=== PATIENT | female | born 1935 | race Two or more races ===

== ENCOUNTER 2018-08-03 09:30 | Emergency (ER) | payer MEDICARE, OTHER ==
[~2018-08-03] VITALS: Ht 165.1 cm; Wt 70.3 kg
[2018-08-03] MEDS: cloNIDine HCL 0.1 MG TAB PO ONE (09:50)
[2018-08-03 10:22] LABS: Basophils # (auto) 0 uL; Basophils % (auto) 0.5 % (0.0-2.0); Eosinophils # (auto) 0.1 uL; Eosinophils % (auto) 0.7 % (0.0-7.0); Hematocrit 44.6 % (36.0-46.0); Hemoglobin 14.8 g/dL (12.2-16.2); Lymphocytes # (auto) 1.8 uL; Lymphocytes % (auto) 19.6 % (10.0-50.0); Mean Corpuscular Hemoglobin 30.4 pg (28.0-32.0); Mean Corpuscular Hgb Conc. 33.1 g/dL (32.0-36.0); Mean Corpuscular Volume 91.9 fL (80.0-100.0); Monocytes % (auto) 11.4 % (0.0-12.0); Neutrophils # (auto) 6.1 uL; Neutrophils % (auto) 67.8 % (37.0-80.0); Platelet Count (auto) 281 10^3/uL (140-450); Red Blood Cells 4.86 10^6/uL (4.0-5.20); Red Cell Distribution Width 13.3 % (11.8-14.3)
[2018-08-03 10:39] LABS: Alanine Aminotransferase 27 U/L (13-56); Albumin 3.3 g/dL (3.4-5.0); Anion Gap 10 (5-15); Aspartate Aminotransferase 25 U/L (15-37); BUN/Creatinine Ratio 16.9; Blood Urea Nitrogen 15 mg/dL (7-18); Calcium 8.8 mg/dL (8.5-10.1); Carbon Dioxide 23 mmol/L (21-32); Chloride 106 mmol/L (98-107); GFR African American 78 mL/min; GFR Non-African American 65 mL/min; Glucose 119 mg/dL (74-106); Potassium 4.3 mmol/L (3.5-5.1); Sodium 139 mmol/L (136-145)
[2018-08-03 10:42] LABS: Alkaline Phosphatase 87 U/L (45-117); Bilirubin, Total 0.4 mg/dL (0.2-1.0); Total Protein 8.5 g/dL (6.4-8.2)
[2018-08-03 11:25] LABS: Urine Bacteria NONE SEEN /hpf (None Seen); Urine Blood TRACE /uL (Negative); Urine Specific Gravity 1.006 (1.001-1.035); Urine WBC <1 /hpf (0 - 5)
[2018-08-03 12:37] VITALS: BP 112/72
== END 2018-08-03 13:19 | disposition home or self-care (01) ==
LOC: ER 09:30
DX: M71.561 Other bursitis, not elsewhere classified, right knee (principal); I48.2 Chronic atrial fibrillation; I10 Essential (primary) hypertension; E44.1 Mild protein-calorie malnutrition; Z68.25 Body mass index [BMI] 25.0-25.9, adult; Z86.39 Personal history of other endocrine, nutritional and metabolic disease; Z88.2 Allergy status to sulfonamides
CPT/HCPCS: 36415; 80053; 81001; 85025; 93005

== ENCOUNTER 2024-07-28 13:11 | Inpatient (IN) | payer MEDICARE, BC ==
[~2024-07-28] VITALS: Ht 162.6 cm; Wt 67.6 kg
[2024-07-28] MEDS: hydrALAZINE HCL 10 MG TAB PO ONE (13:56)
[2024-07-28] MEDS: HYDROcodone-ACET 5/325MG TAB PO ONE (13:57)
[2024-07-28 14:22] LABS: Basophils # (auto) 0 10 ^3/uL (0-0.2); Basophils % (auto) 0.3 % (0.0-2.0); Eosinophils # (auto) 0 10 ^3/uL (0-0.8); Eosinophils % (auto) 0.1 % (0.0-7.0); Hematocrit 44.7 % (36.0-46.0); Hemoglobin 14.9 g/dL (12.2-16.2); Lymphocytes # (auto) 1.4 10 ^3/uL (0.4-5.4); Lymphocytes % (auto) 9.7 % (10.0-50.0); Mean Corpuscular Hemoglobin 30.2 pg (28.0-32.0); Mean Corpuscular Hgb Conc. 33.3 g/dL (32.0-36.0); Mean Corpuscular Volume 90.7 fL (80.0-100.0); Monocytes # (auto) 1.2 10 ^3/uL (0-1.3); Monocytes % (auto) 8.5 % (0.0-12.0); Neutrophils # (auto) 11.6 10 ^3/uL (1.6-8.6); Neutrophils % (auto) 81.4 % (37.0-80.0); Nucleated Red Blood Cells % 0.1 %; Platelet Count (auto) 226 10^3/uL (140-450); Red Blood Cells 4.93 10^6/uL (4.0-5.20); Red Cell Distribution Width 13.9 % (11.8-14.3); White Blood Cell 14.2 10^3/uL (4.4-10.8)
--- NOTE | 2024-07-28 14:25 | DVH ---
CT HEAD WITHOUT CONTRAST Indication: fall head injury on amisha EXAM DATE: 07/28/2024 01:19 PM COMPARISON: None TECHNIQUE:CT of the head, cervical spinewithout intravenous contrast. RADIATION DOSE: CTDIvol: 53.99 mGy, DLP: 863.9 mGy*cm FINDINGS: There is no intracranial hemorrhage. There is no extra-axial fluid, mass, mass effect or midline shif t. The ventricles are midline and normal in size. Basilar cisterns are patent. There are moderate per iventricular and subcortical white matter chronic microvascular ischemic changes. The paranasal sinuses and mastoids are well-pneumatized. Imaged portion of the orbits are unremarkabl e. Cervical vertebral body heights are maintained. Severe multilevel disc space narrowing most pronounc ed at C5-6, C6-7.2 mm anterolisthesis of C3 upon C4.3 mm anterolisthesis C4 upon C5. Moderate to adv anced facet hypertrophic changes. Moderate to severe multilevel neural foraminal stenosis. Carotid at herosclerotic disease. IMPRESSION: 1. No intracranial hemorrhage or mass effect. 2. Moderate chronic microvascular Ischemic changes. 3. Severe cervical degenerative disc disease.
[2024-07-28 14:26] LABS: Chloride 104 mmol/L (98-107); Potassium 4.1 mmol/L (3.5-5.1); Sodium 139 mmol/L (136-145)
[2024-07-28 14:27] LABS: Anion Gap 11 (5-15); Carbon Dioxide 24 mmol/L (20-31)
[2024-07-28 14:28] LABS: Calcium 10.4 mg/dL (8.7-10.4)
[2024-07-28 14:32] LABS: BUN/Creatinine Ratio 28.6 (10.0-20.0)
[2024-07-28 14:33] LABS: Blood Urea Nitrogen 28 mg/dL (9-23); Glucose 123 mg/dL (74-106)
--- NOTE | 2024-07-28 14:34 | DVH ---
Procedure: CT CT R HIP WITH OUT CONTRAST 07/28/2024 01:26 PM Indication: fall r hip pain Comparison Study: None Technique: Axial images of the right hip were obtained and reformatted in coronal and sagittal planes . All CT scans at this medical facility are performed using dose modulation techniques as appropriate to a performed exam including the following: Automated exposure control was utilized; adjustment of the MA and/or KV according to patient size; and use of iterative reconstruction technique. CT Dose: C TDI volume is 23.08 mGy. Dose-length product is 607.11 mGy*cm FINDINGS: Bones: No acute fracture or dislocation. Joint spaces are maintained. Soft tissues: Atherosclerotic calcification noted. Colonic diverticulosis. Small fat containing righ t inguinal hernia. IMPRESSION: 1. No acute osseous abnormality.
--- NOTE | 2024-07-28 14:39 | DVH ---
Indication: fall lo back pain Technique: CT axial images of the lumbar spine are obtained without contrast. Coronal and sagittal re formats were obtained. Radiation Dose Information: CTDI volume is 24.46 mGy. Dose-length product is 785.79 mGy*cm Comparison: None FINDINGS: Acute fracture of the T12 vertebral body which extends through the superior and inferior endplates, l eft lateral cortex of the T12 vertebral body.. Approximately 20% depression of the T12 vertebral body . Lumbar vertebral body heights are maintained. Moderate to severe multilevel disc space narrowing. Rebecca mbar levoscoliosis. Severe lumbar facet hypertrophic changes. Atherosclerotic calcification disease. Colonic diverticular disease. IMPRESSION: 1. Acute T12 vertebral body fracture. Recommend dedicated CT of the thoracic spine to evaluate. 2. Moderate to severe lumbar degenerative disc disease. Lumbar levocurvature.
[2024-07-28 15:00] VITALS: PULSE 88; RESP 16; O2SAT 99
--- NOTE | 2024-07-28 15:07 | ED.PDOC ---
History of Present Illness HPI Comments 88-year-old female with a history of AFib, hypertension, thyroid disease and anxiety brought in by family complaining of low back and right hip pain status post fall yesterday evening while showering. Patient states she lost her balance, fell backwards landing on her back and hitting the back of her head on the shower floor. She denies losing consciousness or any preceding dizziness, chest pain or shortness of breath. Currently she is complaining of low back pain and right hip pain. She denies any current chest pain, shortness of breath, recent illness, edema or other symptoms. Chief Complaint: Fall Injury Time Seen by MD: 13:26 Primary Care Provider: JACKIE Allergies: Coded Allergies: Sulfa Antibiotics (Verified Allergy, Unknown, 08/03/18) Mode of Arrival: Ambulatory Past Medical History PAST MEDICAL HISTORY: AFIB, Arthritis, Depression, HTN, Thyroid Surgical History (Other): Breast lumpectomy WASTEWATER MANAGER History: No Pertinent WASTEWATER MANAGER History Family History Family History: Reviewed,noncontributory to illness Social History Smoker: Non-Smoker Alcohol: Denies ETOH Use Drugs: Denies Drug Use Lives In: Home All Other Systems: Reviewed and Negative (Comprehensive systems review obtained and negative except for what is stated in the HPI.) Physical Exam General Appearance: No Apparent Distress HEENT: Other (Pupils and face symmetric. Moist mucous membranes.) Neck: Full Range of Motion, Other (Mild midline and paraspinal cervical tenderness to palpation. No crepitus or step-off) Respiratory: Lungs Clear, No Accessory Muscle Use, No Respiratory Distress, Normal Breath Sounds Cardiovascular: Irregular, No Edema, No JVD Breast Exam: Deferred Gastrointestinal: Non Tender, Soft Genitalia: Deferred Pelvic: Deferred Rectal: Deferred Extremities: Normal inspection, Normal range of motion, No pedal edema, Other (Right hip soft tissue tenderness to palpation) Musculoskeletal : Extremity Location: Back (Upper lumbar midline tenderness to palpation) Neurologic: Alert (Oriented x4), Normal Affect, Normal Mood, Other (Ambulatory) Cerebellar Function: NOT DONE Reflexes: NOT DONE Skin: Dry, Normal Color, Warm Lymphatic: NOT DONE Was a procedure done? Was a procedure done?: No EKG EKG : Comments AFib, rate 90, normal QRS interval, QTC prolonged at 500, left axis deviation, lateral T-wave inversion with ST depression Differential Dx Considerations may include: Contusion, sprain, strain, fracture, dislocation, electrolyte imbalance, arrhythmia, [place], CVA, among others X-Ray, Labs, Meds, VS Vital Signs Date Time Temp Pulse Resp B/P (MAP) Pulse Ox O2 Delivery O2 Flow Rate FiO2 07/28/24 20:23 90 07/28/24 19:20 97.7 94 15 151/94 (113) 93 97.7 07/28/24 19:20 94 15 93 Room Air* 0 21 07/28/24 18:10 98.0 86 20 137/86 (103) 95 98.0 07/28/24 17:28 Room Air* 0 21 07/28/24 15:00 98.2 88 16 156/85 (108) 99 98.2 07/28/24 15:00 88 16 99 Room Air* 0 21 07/28/24 13:56 174/124 07/28/24 13:18 98.2 89 20 176/124 (141) 97 98.2 176/115 (135) Lab Test 07/28/24 15:06 07/28/24 14:08 Range/Units Troponin I High Sensitivity 326 *H 370 *H </=34 ng/L White Blood Count 14.2 H 4.4-10.8 10^3/uL Red Blood Count 4.93 4.0-5.20 10^6/uL Hemoglobin 14.9 12.2-16.2 g/dL Hematocrit 44.7 36.0-46.0 % Mean Corpuscular Volume 90.7 80.0-100.0 fL Mean Corpuscular Hemoglobin 30.2 28.0-32.0 pg Mean Corpuscular Hemoglobin Concent 33.3 32.0-36.0 g/dL Red Cell Distribution Width 13.9 11.8-14.3 % Platelet Count 226 140-450 10^3/uL Mean Platelet Volume 8.3 6.9-10.8 fL Neutrophils (%) (Auto) 81.4 H 37.0-80.0 % Lymphocytes (%) (Auto) 9.7 L 10.0-50.0 % Monocytes (%) (Auto) 8.5 0.0-12.0 % Eosinophils (%) (Auto) 0.1 0.0-7.0 % Basophils (%) (Auto) 0.3 0.0-2.0 % Neutrophils # (Auto) 11.6 H 1.6-8.6 10 ^3/uL Lymphocytes # (Auto) 1.4 0.4-5.4 10 ^3/uL Monocytes # (Auto) 1.2 0-1.3 10 ^3/uL Eosinophils # (Auto) 0 0-0.8 10 ^3/uL Basophils # (Auto) 0 0-0.2 10 ^3/uL Nucleated Red Blood Cells 0.1 % Sodium Level 139 136-145 mmol/L Potassium Level 4.1 3.5-5.1 mmol/L Chloride Level 104 98-107 mmol/L Carbon Dioxide Level 24 20-31 mmol/L Anion Gap 11 5-15 Blood Urea Nitrogen 28 H 9-23 mg/dL Creatinine 0.98 0.550-1.02 mg/dL Glomerular Filtration Rate Calc 56 >90 mL/min BUN/Creatinine Ratio 28.6 H 10.0-20.0 Serum Glucose 123 H 74-106 mg/dL Calcium Level 10.4 8.7-10.4 mg/dL B-Type Natriuretic Peptide 1077.30 0-100 pg/mL Current Medications Medications (Trade) Dose Ordered Sig/Oli Route Start Time Stop Time Status Last Admin Acetaminophen/ Hydrocodone Bitart (Canute 5/325MG Tab) 1 tab ONCE ONCE PO 07/28/24 13:30 07/28/24 13:31 DC 07/28/24 13:57 Hydralazine HCl (Apresoline Tablet) 10 mg ONCE ONCE PO 07/28/24 13:30 07/28/24 13:31 DC 07/28/24 13:56 Aspirin 325 mg ONCE ONCE PO 07/28/24 19:30 07/28/24 20:35 DC 07/28/24 20:48 PROCEDURE(s): HWOCT - HEAD WITHOUT CONTRAST REASON: fall head injury on T[employer] Labsquis ORDER NUMBER(s): [id number], ACCESSION NUMBER(s): [id number] CT HEAD WITHOUT CONTRAST Indication: fall head injury on eliquis EXAM DATE: 07/28/2024 01:19 PM COMPARISON: None TECHNIQUE:CT of the head, cervical spinewithout intravenous contrast. RADIATION DOSE: CTDIvol: 53.99 mGy, DLP: 863.9 mGy*cm FINDINGS: There is no intracranial hemorrhage. There is no extra-axial fluid, mass, mass effect or midline shift. The ventricles are midline and normal in size. Basilar cisterns are patent. There are moderate periventricular and subcortical white matter chronic microvascular ischemic changes. The paranasal sinuses and mastoids are well-pneumatized. Imaged portion of the orbits are unremarkable. Cervical vertebral body heights are maintained. Severe multilevel disc space narrowing most pronounced at C5-6, C6-7.2 mm anterolisthesis of C3 upon C4.3 mm anterolisthesis C4 upon C5. Moderate to advanced facet hypertrophic changes. Moderate to severe multilevel neural foraminal stenosis. Carotid atherosclerotic disease. IMPRESSION: 1. No intracranial hemorrhage or mass effect. 2. Moderate chronic microvascular Ischemic changes. 3. Severe cervical degenerative disc disease. EDURE(s): CS2 - CERVICAL WITHOUT CONTRAST REASON: fall head injury ORDER NUMBER(s): [id number], ACCESSION NUMBER(s): [id number] CT HEAD WITHOUT CONTRAST Indication: fall head injury on [facility] EXAM DATE: 07/28/2024 01:19 PM COMPARISON: None TECHNIQUE:CT of the head, cervical spinewithout intravenous contrast. RADIATION DOSE: CTDIvol: 53.99 mGy, DLP: 863.9 mGy*cm FINDINGS: There is no intracranial hemorrhage. There is no extra-axial fluid, mass, mass effect or midline shift. The ventricles are midline and normal in size. Basilar cisterns are patent. There are moderate periventricular and subcortical white matter chronic microvascular ischemic changes. The paranasal sinuses and mastoids are well-pneumatized. Imaged portion of the orbits are unremarkable. Cervical vertebral body heights are maintained. Severe multilevel disc space narrowing most pronounced at C5-6, C6-7.2 mm anterolisthesis of C3 upon C4.3 mm anterolisthesis C4 upon C5. Moderate to advanced facet hypertrophic changes. Moderate to severe multilevel neural foraminal stenosis. Carotid atherosclerotic disease. IMPRESSION: 1. No intracranial hemorrhage or mass effect. 2. Moderate chronic microvascular Ischemic changes. 3. Severe cervical degenerative disc disease. EDURE(s): CXR1 - CHEST XRAY 1 VIEW REASON: fall ORDER NUMBER(s): [id number], ACCESSION NUMBER(s): [id number] EXAM: XY CHEST XRAY 1 VIEW Indication: Trauma Technique: Single frontal view of the chest was obtained Comparison: None FINDINGS: Lines and Tubes: None Lungs: No focal consolidation. Pleura: No effusion. No pneumothorax. Cardiomediastinal contours: Unremarkable. Atherosclerotic vascular calcifications of the thoracic aorta are noted. Bones: No acute osseous abnormality. IMPRESSION: No acute cardiopulmonary disease. EDURE(s): LS2CT - LS SPINE WO CONTRAST REASON: fall lo back pain ORDER NUMBER(s): [id number], ACCESSION NUMBER(s): [id number] Indication: fall lo back pain Technique: CT axial images of the lumbar spine are obtained without contrast. Coronal and sagittal reformats were obtained. Radiation Dose Information: CTDI volume is 24.46 mGy. Dose-length product is 785.79 mGy*cm Comparison: None FINDINGS: Acute fracture of the T12 vertebral body which extends through the superior and inferior endplates, left lateral cortex of the T12 vertebral body.. Approximately 20% depression of the T12 vertebral body. Lumbar vertebral body heights are maintained. Moderate to severe multilevel disc space narrowing. Lumbar levoscoliosis. Severe lumbar facet hypertrophic changes. Atherosclerotic calcification disease. Colonic diverticular disease. IMPRESSION: 1. Acute T12 vertebral body fracture. Recommend dedicated CT of the thoracic spine to evaluate. 2. Moderate to severe lumbar degenerative disc disease. Lumbar levocurvature. EDURE(s): RHPCT - CT R HIP WITH OUT CONTRAST REASON: fall r hip pain ORDER NUMBER(s): [id number], ACCESSION NUMBER(s): [id number] Procedure: CT CT R HIP WITH OUT CONTRAST 07/28/2024 01:26 PM Indication: fall r hip pain Comparison Study: None Technique: Axial images of the right hip were obtained and reformatted in coronal and sagittal planes. All CT scans at this medical facility are performed using dose modulation techniques as appropriate to a performed exam including the following: Automated exposure control was utilized; adjustment of the MA and/or KV according to patient size; and use of iterative reconstruction technique. CT Dose: CTDI volume is 23.08 mGy. Dose-length product is 607.11 mGy*cm FINDINGS: Bones: No acute fracture or dislocation. Joint spaces are maintained. Soft tissues: Atherosclerotic calcification noted. Colonic diverticulosis. Small fat containing right inguinal hernia. IMPRESSION: 1. No acute osseous abnormality. X-Ray, Labs, Meds, VS Comment 88-year-old female with a history of AFib, hypertension and arthritis presenting with back pain, hip pain and a head injury after a fall in the shower last night Vitals remarkable for BP 176/124 Exam remarkable for neck, low back, and right hip tenderness Rhythm strip independently interpreted by me: AFib, rate 90, no PVCs CT head, C-spine and hip unremarkable for any acute fracture Chest x-ray unremarkable CT lumbar spine remarkable for acute T12 vertebral body fracture CBC remarkable for WBC 14.2, metabolic panel remarkable for BUN 28, serial troponins 370 and 326, BNP 1077.3 Patient treated with the following in the ED: Canute 5/325 mg p.o., hydralazine 10 mg p.o., aspirin 325 mg p.o. On re-evaluation, patient states pain has improved. Vitals were stable. She is not complaining of chest pain or shortness of breath. Plan is to admit the patient for ortho spine evaluation, pain control and Cardiology evaluation Time of 1ST Reevaluation: 19:31 Reevaluation 1ST: Improved Patient Education/Counseling: Diagnosis, Treatment, Need For Follow Up Family Education/Counseling: No Family Present Departure 1 Departure Time of Disposition: 17:00 Impression: Primary Impression: Spine fracture Qualified Codes: S22.089A - Unspecified fracture of t11-T12 vertebra, initial encounter for closed fracture Additional Impression: Elevated troponin I level Disposition: ADMITTED INPATIENT Admit to: [facility] [place] Condition: Guarded Critical Care Note Critical Care Time?: No Stability Stability form required: No Heart Score Heart Score: Heart Score Response (Comments) Value History N/A 0 EKG N/A 0 Age N/A 0 Risk Factors N/A 0 Troponin N/A 0 Total 0 DOV KHOURY MD July 28, 2024 15:07
--- NOTE | 2024-07-28 15:22 | DVH ---
EXAM: XY CHEST XRAY 1 VIEW Indication: Trauma Technique: Single frontal view of the chest was obtained Comparison: None FINDINGS: Lines and Tubes: None Lungs: No focal consolidation. Pleura: No effusion. No pneumothorax. Cardiomediastinal contours: Unremarkable. Atherosclerotic vascular calcifications of the thoracic ao rta are noted. Bones: No acute osseous abnormality. IMPRESSION: No acute cardiopulmonary disease.
[2024-07-28 19:20] VITALS: PULSE 94; RESP 15; O2SAT 93
[2024-07-28] MEDS: ASPirin 325 MG TAB PO ONE (20:48)
--- NOTE | 2024-07-28 22:25 | DVHHP2 ---
History of Present Illness History of Present Illness Patient is 88 years old female with past medical history of atrial fibrillation on Eliquis, hypertension, depression, thyroid disease was brought in due to back pain and hip pain status post fall yesterday. So patient she fell in the shower room on her back and hit her head. Patient also had right hip pain and back pain, 9/10. Denied any losing consciousness or chest pain or shortness of breath. On arrival patient's blood pressure was 176/115, leukocytosis WBC 14.2, DW monitoring 1.4, lymphocytes 10.7, troponin I 370> 326, BNP 1077. Cervical s pine- No intracranial hemorrhage or mass effect. Moderate chronic microvascular Ischemic changes. Severe cervical degenerative disc disease. CT head- No intracranial hemorrhage or mass effect. Moderate chronic microvascular Ischemic changes. Severe cervical degenerative disc disease. CT right hip-1. No acute osseous abnormality. CT lumbar spine- 1. Acute T12 vertebral body fracture. Recommend dedicated CT of the thoracic spine to evaluate. Moderate to severe lumbar degenerative disc disease. Lumbar levocurvature. CXR no acute cardiopulmonary abnormality noted. CT Thoracic Spine- Acute T12 vertebral body fracture. No significant retropulsion into the spinal canal. Moderate degenerative arthrosis throughout the thoracic spine. . S shaped scoliosis of the thoracic spine. EKG-atrial fibrillation, rate controlled. Past Medical History atrial fibrillation on Eliquis, hypertension, depression, thyroid disease Past Surgical History Breast lumpectomy Family History None Past Social History Lives with the , denies all Review of Systems Review of Systems Allergy-sulfa antibiotic Patient was seen today at the bedside. Cardiovascular- deny acute chest pain or shortness of breath or cough or palpitation Respiratory denies cough or short of breath or wheezing Gastrointestinal- denies any rectal bleeding, nausea or vomiting Musculoskeletal-denies acute joint swelling or tenderness or redness Neurological- denies acute dysarthria, dysphagia, change in vision Psychiatry- denies depression or SI or HI Skin- denies acute rash or purpura Allergies: Coded Allergies: Sulfa Antibiotics (Verified Allergy, Unknown, 08/03/18) Medications Current Medications Medications Dose Ordered Sig/Oli Route Start Time Stop Time Status Last Admin Dose Admin Sodium Chloride 10 ml Q8HR IV 07/29/24 06:00 Acetaminophen/ Hydrocodone Bitart 1 tab Q4HP PRN PO 07/28/24 22:30 UNV Acetaminophen 650 mg Q6HP PRN PO 07/28/24 22:30 UNV Morphine Sulfate 2 mg Q4HPRN PRN IV 07/28/24 22:30 UNV Nitroglycerin 0.4 mg Q5MINP PRN SL 07/28/24 22:30 UNV Morphine Sulfate 2 mg Q30M PRN IV 07/28/24 22:30 UNV Exam Vital Signs Vital Signs Date Time Temp Pulse Resp B/P (MAP) Pulse Ox O2 Delivery O2 Flow Rate FiO2 07/28/24 22:00 95 20 171/101 (124) 95 07/28/24 19:20 97.7 97.7 07/28/24 19:20 Room Air* 0 21 Exam General examination- , alert, oriented HEENT- PEERLA, no acute nasal discharge Cardiovascular- S1-S2 audible, rate and rhythm regular, no murmur Respiratory- CTAB, no wheeze or rhonchi Gastrointestinal-nontender, bowel sound+. Nondistended Musculoskeletal-no acute joint swelling or tenderness or redness Lower extremity- no leg edema Neurological- cranial nerves intact, no acute dysarthria or dysphagia Psychiatry- denies depression or SI or HI Skin- no acute rash or purpura Labs/Xrays Labs Test 07/28/24 15:06 07/28/24 14:08 Range/Units Troponin I High Sensitivity 326 *H </=34 ng/L White Blood Count 14.2 H 4.4-10.8 10^3/uL Red Blood Count 4.93 4.0-5.20 10^6/uL Hemoglobin 14.9 12.2-16.2 g/dL Hematocrit 44.7 36.0-46.0 % Mean Corpuscular Volume 90.7 80.0-100.0 fL Mean Corpuscular Hemoglobin 30.2 28.0-32.0 pg Mean Corpuscular Hemoglobin Concent 33.3 32.0-36.0 g/dL Red Cell Distribution Width 13.9 11.8-14.3 % Platelet Count 226 140-450 10^3/uL Mean Platelet Volume 8.3 6.9-10.8 fL Neutrophils (%) (Auto) 81.4 H 37.0-80.0 % Lymphocytes (%) (Auto) 9.7 L 10.0-50.0 % Monocytes (%) (Auto) 8.5 0.0-12.0 % Eosinophils (%) (Auto) 0.1 0.0-7.0 % Basophils (%) (Auto) 0.3 0.0-2.0 % Neutrophils # (Auto) 11.6 H 1.6-8.6 10 ^3/uL Lymphocytes # (Auto) 1.4 0.4-5.4 10 ^3/uL Monocytes # (Auto) 1.2 0-1.3 10 ^3/uL Eosinophils # (Auto) 0 0-0.8 10 ^3/uL Basophils # (Auto) 0 0-0.2 10 ^3/uL Nucleated Red Blood Cells 0.1 % Sodium Level 139 136-145 mmol/L Potassium Level 4.1 3.5-5.1 mmol/L Chloride Level 104 98-107 mmol/L Carbon Dioxide Level 24 20-31 mmol/L Anion Gap 11 5-15 Blood Urea Nitrogen 28 H 9-23 mg/dL Creatinine 0.98 0.550-1.02 mg/dL Glomerular Filtration Rate Calc 56 >90 mL/min BUN/Creatinine Ratio 28.6 H 10.0-20.0 Serum Glucose 123 H 74-106 mg/dL Calcium Level 10.4 8.7-10.4 mg/dL B-Type Natriuretic Peptide 1077.30 0-100 pg/mL Assessment/Plan Assessment/Plan Assessment and plan Fall Thoracic 2 vertebral fracture Severe back pain likely due to T2 vertebral fracture Atrial fibrillation rate controlled Hypertensive urgency NSTEMI type 2 likely demand lead ischemia Heart failure systolic versus diastolic-pending echo 2D Leukocytosis under evaluation Hypothyroidism Depression Osteoarthritis scoliosis of the thoracic spine Moderate degenerative arthrosis throughout the thoracic spin Head-Moderate chronic microvascular Ischemic changes of head EKG-atrial fibrillation, rate controlled Repeat EKG at a.m. on 07/29/2024-no significant change except AFib like before CT Thoracic Spine- Acute T12 vertebral body fracture. No significant retropulsion into the spinal canal. Moderate degenerative arthrosis throughout the thoracic spine. . S shaped scoliosis of the thoracic spine Cervical spine- No intracranial hemorrhage or mass effect. Moderate chronic microvascular Ischemic changes. Severe cervical degenerative disc disease. CT head- No intracranial hemorrhage or mass effect. Moderate chronic micro vascular Ischemic changes. Severe cervical degenerative disc disease. CT right hip-1. No acute osseous abnormality. CT lumbar spine- 1. Acute T12 vertebral body fracture. Moderate to severe lumbar degenerative disc disease. Lumbar levocurvature. CXR no acute cardiopulmonary abnormality noted. Plan Continue pain medication as prescribed Aspirin 80 mg p.o. daily Atorvastatin 40 mg p.o. q.h.s. Coreg 6.25 mg p.o. b.i.d. Losartan 50 mg p.o. daily Ordered ceftriaxone 1 g IV daily Eliquis 2.5 mg p.o. b.i.d. Levothyroxine 88 mcg p.o. q.a.m. Ordered urinalysis Ordered uterine culture, blood culture Ordered free T4 Ordered echo 2D Ordered cardiology consult Goals of care, Code status ; discussed with >15 minutes PUD prophylaxis: Pantoprazole DVT prophylaxis: Eliquis Plan discussed with Dr. Corral , nursing staff, Total time spent on patient evaluation, chart review, assessment and plan, discussion discussion >35 minutes Plan discussed with: Patient, Other My Orders Orders - JONNATHAN TORRES RESIDENT Procedure Category Date Status Time Admit ADMIT 07/28/24 Transmitted 22:19 Code Status CODE 07/28/24 Transmitted 22:19 Sodium Chloride Lock PHA 07/29/24 In Process (Saline Lock Ns) 06:00 Hydrocodone-Acet PHA 07/28/24 Logged 5/325mg Tab (Fonda 22:30 Complete Blood Count LAB 07/29/24 Verified 04:00 Comprehensive LAB 07/29/24 Verified Metabolic Panel 04:00 Cardiac DIET 07/29/24 Transmitted Diet-2gna,Lofat,Lochol Breakfast Echo 2d Mode Cardiac US 07/28/24 Logged DOP 22:19 Acetaminophen Tablet PHA 07/28/24 Logged (Tylenol Tablet) 22:30 Morphine Sulfate PHA 07/28/24 Logged Injection 22:30 Nitroglycerin PHA 07/28/24 Logged Sublingual (Ntrostat 22:30 Morphine Sulfate PHA 07/28/24 Logged Injection 22:30 Oxygen By Nasal RT 07/28/24 Transmitted Cannula 22:19 Stat Ekg For Chest MARTY 07/28/24 In Process Pain 22:19 Notify Of Changes MARTY 07/28/24 In Process From Base 22:[address] Driver For MARTY 07/28/24 In Process 24 Hours 22:19 Emergency Dysrhythmia MARTY 07/28/24 In Process Protocol 22:19 Rhythm Strips Once MARTY 5/16/25 In Process Every Shift 22:19 Date of Service: July 28, 2024 Billing Provider: RYLEE CORRAL MD Common Visit Codes: [id number] INP/OBS CARE (HIGH) Secondary Visit Codes: [id number] CARE PLAN 30 MINUTES JONNATHAN TORRES RESIDENT July 28, 2024 22:25
[2024-07-28] MEDS: ASPirin 81 mg TAB PO ONE (22:28)
[2024-07-28] MEDS ORDERED: NITROGLYCERIN 0.4 MG SL TAB SL PRN (22:30)
[2024-07-28] MEDS ORDERED: MORPHINE SULFATE INJ 2 MG/ml SYRG IV PRN ×2 (22:30)
[2024-07-28] MEDS: ATORVASTATIN 20 MG TAB PO ONE (22:34)
[2024-07-28] MEDS: HYDROcodone-ACET 5/325MG TAB PO PRN (22:34)
[2024-07-28] MEDS: METOPROLOL TARTRATE 25 MG TAB PO ONE (22:35)
[2024-07-28] MEDS: LEVOTHYROXINE SODIUM 100 MCG TAB PO ONE (22:35)
[2024-07-28] MEDS: hydrALAZINE HCL 20 MG/ML VL IV ONE (23:08)
[2024-07-28] MEDS ORDERED: NIFEdipine ER 30 MG TAB PO ONE (23:15)
[2024-07-28] MEDS: CARVEDILOL 3.125 MG TAB PO ONE (23:27)
[2024-07-28] MEDS: PANTOPRAZOLE 40 MG TAB PO ONE (23:30)
[2024-07-28] MEDS: cefTRIAXone 1GM/50ML D5W 50 ML IV ONE (23:46)
[2024-07-28] MEDS: SERTRALINE HCL 50 MG TAB PO ONE (23:47)
--- NOTE | 2024-07-28 23:50 | DVH ---
EXAM: CT THORACIC SPINE WO CONTRAS INDICATION: eval T 12 fx COMPARISON: None TECHNIQUE: Multiple axial CT images of the thoracic spine were obtained using bone algorithm. Axial and coronal reformatting was done. Bone and soft tissue windows were reviewed. Radiation Dose Information: CT Dose: CTDI volume is 29 mGy. Dose-length product is 868 mGy*cm FINDINGS: Acute T12 vertebral body fracture. No significant retropulsion into the spinal canal. The visualized paraspinal soft tissues are grossly unremarkable. Moderate degenerative changes throughout the thoracic spine. S shaped scoliosis of the thoracic spine. IMPRESSION: 1. Acute T12 vertebral body fracture. No significant retropulsion into the spinal canal. 2. Moderate degenerative arthrosis throughout the thoracic spine. 3. S shaped scoliosis of the thoracic spine Radiation optimization: All CT scans at this facility use at least one of these dose optimization keegan hniques: automated exposure control mA and/or kV adjustment per patient size (includes targeted exam s where dose is matched to clinical indication) or iterative reconstruction.
[2024-07-29] VITALS (10 sets, daily range): BP systolic 100–165; BP diastolic 67–102; PULSE 73–108; RESP 15–19; TEMP 97.5–98; O2SAT 90–99
[2024-07-29] MEDS: PANTOPRAZOLE 40 MG/10 ML VIAL INJ IV ONE (00:44)
[2024-07-29] MEDS: ONDANSETRON HCL 4 MG/2 ML VIAL IM ONE (00:44)
[2024-07-29] MEDS ORDERED: APIX2.5T PO (03:20)
[2024-07-29] MEDS ORDERED: MET50T PO (03:21)
[2024-07-29] MEDS ORDERED: ATOR20TA PO (03:22)
[2024-07-29] MEDS ORDERED: SERT25TA28 PO (03:22)
[2024-07-29] MEDS: SODIUM CHLOR 0.9% PF (SALINE LOCK) 10ML VIAL/SYR IV SCH (05:47)
--- NOTE | 2024-07-29 06:09 | ECG ---
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
[2024-07-29 06:24] LABS: Basophils # (auto) 0.1 10 ^3/uL (0-0.2); Basophils % (auto) 0.4 % (0.0-2.0); Eosinophils # (auto) 0 10 ^3/uL (0-0.8); Eosinophils % (auto) 0.3 % (0.0-7.0); Hematocrit 43.6 % (36.0-46.0); Hemoglobin 14.5 g/dL (12.2-16.2); Lymphocytes # (auto) 1.5 10 ^3/uL (0.4-5.4); Lymphocytes % (auto) 11.3 % (10.0-50.0); Mean Corpuscular Hemoglobin 30.1 pg (28.0-32.0); Mean Corpuscular Hgb Conc. 33.3 g/dL (32.0-36.0); Mean Corpuscular Volume 90.2 fL (80.0-100.0); Monocytes # (auto) 1.2 10 ^3/uL (0-1.3); Monocytes % (auto) 9.1 % (0.0-12.0); Neutrophils # (auto) 10.2 10 ^3/uL (1.6-8.6); Neutrophils % (auto) 78.9 % (37.0-80.0); Nucleated Red Blood Cells % 0.1 %; Platelet Count (auto) 188 10^3/uL (140-450); Red Blood Cells 4.83 10^6/uL (4.0-5.20)
[2024-07-29 06:43] LABS: Alanine Aminotransferase 21 U/L (7-40); Albumin 3.9 g/dL (3.2-4.8); Alkaline Phosphatase 71 U/L (46-116); Anion Gap 12 (5-15); Aspartate Aminotransferase 37 U/L (13-40); BUN/Creatinine Ratio 23.5 (10.0-20.0); Blood Urea Nitrogen 20 mg/dL (9-23); Calcium 9.1 mg/dL (8.7-10.4); Carbon Dioxide 23 mmol/L (20-31); Chloride 103 mmol/L (98-107); Magnesium 2.2 mg/dL (1.6-2.6); Potassium 4.1 mmol/L (3.5-5.1); Sodium 138 mmol/L (136-145); Total Protein 7.4 g/dL (5.7-8.2)
[2024-07-29 07:05] LABS: Glucose 113 mg/dL (74-106)
[2024-07-29] MEDS: ONDANSETRON HCL 4 MG/2 ML VIAL IV PRN (08:22)
[2024-07-29] MEDS: SERTRALINE HCL 50 MG TAB PO SCH (08:33)
[2024-07-29] MEDS: cefTRIAXone 1GM/50ML D5W 50 ML IV SCH (08:33)
[2024-07-29] MEDS: APIXABAN 2.5 MG TAB PO SCH (08:33)
[2024-07-29] MEDS: ASPirin 81 mg TAB PO SCH (08:34)
[2024-07-29] MEDS: LOSARTAN POTASSIUM 25 MG TAB PO SCH (08:35)
[2024-07-29] MEDS: CARVEDILOL 3.125 MG TAB PO SCH (08:35)
[2024-07-29] MEDS ORDERED: NIFEdipine ER 30 MG TAB PO SCH (10:00)
[2024-07-29] MEDS ORDERED: METOPROLOL TARTRATE 25 MG TAB PO SCH (10:00)
--- NOTE | 2024-07-29 11:34 | ECG ---
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
[2024-07-29] MEDS: CALCITONIN 400unit/2ml Vial (200unit/ml) SC ONE (13:15)
--- NOTE | 2024-07-29 16:01 | DVHPNRES ---
Progress Note Date Seen: July 29, 2024 Resident Creating Document: MILO PARSONLAINE RESIDENT Medical Necessity Reason Pt with a Central, PICC or Fol: No Subjective Review of Systems The patient is an 88-year-old female with a past medical history of atrial fibrillation on Eliquis, hypertension, depression, and thyroid disease who presents with complaints of back and right hip pain following a fall yesterday. The patient reports falling in the shower, landing on her back, and striking her head. She denies any loss of consciousness, chest pain, shortness of breath, or palpitations. She describes the pain as severe, rated 9/10, localized to the lower back and right hip. No numbness, weakness, or bowel/bladder incontinence reported. Past medical history: As per HPI Past surgical history: Breast lumpectomy Social history: Patient lives with the son and denies smoking, alcohol, drug use Home medications, Eliquis 2.5 mg b.i.d., metoprolol tartrate 50 mg b.i.d., sertraline 25 mg, atorvastatin 20 mg Review of systems Patient seen and examined at the bedside Reports of mid back pain Denies numbness or weakness in the lower extremities, no bladder/fecal incontinence Denies abdominal pain, chest pain, shortness of breath, fever or chills Objective vital signs Vital Sign Date Time Temp Pulse Resp B/P (MAP) Pulse Ox O2 Delivery O2 Flow Rate FiO2 07/29/24 09:00 97.7 73 16 132/74 (93) 96 97.7 07/29/24 08:00 Nasal Cannula* 2 28 Total Intake and Output 07/28/24 07/28/24 07/29/24 15:00 23:00 07:00 Intake Total 270 ml Balance 270 ml medications Current Medications Medications Dose Ordered Sig/Oli Route Start Time Stop Time Status Last Admin Dose Admin Sodium Chloride 10 ml Q8HR IV 07/29/24 06:00 07/29/24 05:47 10 ML Acetaminophen/ Hydrocodone Bitart 1 tab Q4HP PRN PO 07/28/24 22:30 07/29/24 13:16 1 TAB Acetaminophen 650 mg Q6HP PRN PO 07/28/24 22:30 Aspirin 81 mg DAILY PO 07/29/24 10:00 07/29/24 08:34 81 MG Apixaban 2.5 mg BID PO 07/29/24 10:00 07/29/24 08:33 2.5 MG Pantoprazole Sodium 40 mg DAILY@0600 PO 07/30/24 06:00 Sertraline HCl 50 mg DAILY PO 07/29/24 10:00 07/29/24 08:33 50 MG Ondansetron HCl 4 mg Q8HPRN PRN IV 07/29/24 08:00 07/29/24 08:22 4 MG Losartan Potassium 50 mg DAILY PO 07/30/24 10:00 Levothyroxine Sodium 88 mcg QAM@0600 PO 07/30/24 06:00 Metoprolol Tartrate 50 mg BID PO 07/29/24 22:00 Examination Constitutional: Patient is alert and oriented to time, place and person and does not appear to be in any distress Gen - no pallor, no icterus, no cyanosis, no clubbing, no LAD, no edema . Skin - Patients skin is warm and dry.. HEENT - normocephalic, atraumatic, moist mucous membranes. Neck - full ROM, no LAD, no JVD Pulmonary - B/L equal breath sounds, no crackles, no wheezing, no stridor. cardiovascular - irregularly irregular S1,S2 heard. no murmurs heard GI - soft, nontender abdomen. no hepatospleenomegaly. Bowel sounds normoactive Neurological - Patient is A/O X 3 . Bilateral upper extremity strength 4/5, bilateral lower extremity strength 4/5, no facial droop, normal speech, no tremor, no sensory deficiets. laboratory and microbiology Laboratory Tests 07/29/24 05:05 Test 07/29/24 05:05 Range/Units Serum Glucose 113 H 74-106 mg/dL Problem List/Assessment/Plan Problem List/Assessment/Plan Status post fall Severe back pain likely due to fracture of the vertebra Vertebral fracture T12 status post fall head CT shows no acute intracranial abnormality Cervical CT shows severe cervical degenerative changes Lumbar spine CT shows [id number] lumbar degenerative disc disease, lumbar levocurvature thoracic spine CT showed acute T12 vertebral body fracture, no significant retropulsion into the spinal canal, scoliosis of thoracic spine - physical therapy evaluation - calcitonin 100 units SC given - pain management Atrial fibrillation, rate controlled Hypertensive emergency NSTEMI type 2 likely demand ischemia Hypertensive heart disease with ?Heart failure - ECG showed atrial fibrillation, no ST segment or T-wave changes - troponins elevated - BNP elevated - Eliquis 2.5 mg b.i.d. - metoprolol 50 mg b.i.d. - losartan 50 mg daily - cardiology consulted -echocardiogram pending H/O hypothyroidism - continue on levothyroxine 88 mcg DVT prophylaxis: On Eliquis for AFib PUD prophylaxis: Protonix Goals of care discussed with the patient and her family including daughter and her . Full code Plan discussed with Dr. Gilliam Plan discussed with: Patient, Spouse, Daughter My Orders My Orders Orders - KATTY PARSON Procedure Category Date Status Time Ondansetron Hcl PHA 07/29/24 In Process (Zofran) 08:00 Losartan Tablet PHA 07/30/24 In Process (Cozaar Tablet) 10:00 Pt Request For Service PT 07/29/24 Logged 13:04 Levothyroxine Tablet PHA 07/30/24 In Process (Synthroid Tablet) 06:00 Metoprolol Tartrate PHA 07/29/24 In Process Tablet (Lopressor Ta 22:00 Date of Service: July 29, 2024 Billing Provider: LIANG GILLIAM MD Common Visit Codes: [id number] INP/OBS CARE(HIGH) KATTY PARSON RESIDENT July 29, 2024 16:01 LIANG GILLIAM MD July 29, 2024 22:14
--- NOTE | 2024-07-29 20:05 | DVHSR ---
APPROVED REPORT EXAM: Two-dimensional and M-mode echocardiogram with Doppler and color Doppler. Blood Pressure: 100/69 mmHg INDICATION Heart Failure CAD RISK FACTORS Height: 5' 4", Weight: 146 DIMENSIONS LVDd4.1 (3.8-5.7cm)LA (2D)3.8 (1.9-4.0cm)Aortic Root2.8 (2.0-3.7cm) LVDs3.0 (2.5-4.0cm)LA (MM) (1.9-4.0cm)Aortic Cusp Exc1.3 (1.5-2.0cm) EF (%) 50.0 (55-70%)Rt. Atrium4.1 (1.9-4.0cm)Asc. Aorta cm IVSd1.5 (0.7-1.1cm)RV (D) (1.8-2.4cm) PWd1.3 (0.7-1.1cm) Mitral Valve MitralMitral Stenosis E wave1.30m/sMV Mean GR.mmHg A wave0.80m/sMV Peak GR.mmHg E/A ratio1.62D MVAcm2 Aortic Valve Aortic ValveAortic Stenosis V10.58m/[place] Mean GR.5mmHg V21.50m/[place] Peak GR.10mmHg LVOT Diameter2.1 (1.8-2.4cm)Doppler AVA1.34cm2 Pulmonic Valve V20.70m/s Tricuspid Valve TR Velocity3.47m/s [id number] Conclusion Technically a good study, Sinus rhythm Bi-atrial enlargement. LVH, Ao sclerosis. Mitral annular calcification at eh tbase of PML TV and PV are normal. LVEF is normal at 65% with normal RV function. Moderate to severe MR, severe TR Small PE not significant. No masses or vegetation.
[2024-07-29] MEDS: METOPROLOL TARTRATE 50 MG TAB PO SCH (21:12)
[2024-07-29] MEDS ORDERED: ATORVASTATIN 20 MG TAB PO SCH (22:00)
[2024-07-29] MEDS: LABETALOL HCL 20 MG/4 ML VL IV PRN (22:32)
--- NOTE | 2024-07-29 22:52 | DVHINCON2 ---
Date of service: July 29, 2024 Referring Physician Neil Reason for Consultation NSTEMI History of Present Illness This is an 88 year old female with a PMH of AFib, hypertension, thyroid disease and anxiety brought in by family with complaints of low back and right hip pain status post fall yesterday evening while showering. Patient states she lost her balance, fell backwards landing on her back and hitting the back of her head on the shower floor. She denies losing consciousness or any preceding dizziness, chest pain or shortness of breath. WBC 14.2, DW monitoring 1.4, lymphocytes 10.7, troponin I 370> 326, BNP 1077. Cervical spine: no intracranial hemorrhage or mass effect. Moderate chronic microvascular Ischemic changes. Severe cervical degenerative disc disease. CT head: no intracranial hemorrhage or mass effect. Moderate chronic microvascular Ischemic changes. Severe cervical degenerative disc disease. CT right hip: no acute osseous abnormality. CT lumbar spine: acute T12 vertebral body fracture. Moderate to severe lumbar degenerative disc disea se. Lumbar levocurvature. Chest x-ray shows NAD. CT Thoracic Spine showed acute T12 vertebral body fracture. No significant retropulsion into the spinal canal. Moderate degenerative arthrosis throughout the thoracic spine. S shaped scoliosis of the thoracic spine. EKG-atrial fibrillation, rate controlled. Patient was admitted to the hospital. I am asked to consult on this patient. Allergies: Coded Allergies: Sulfa Antibiotics (Verified Allergy, Unknown, 08/03/18) Home Meds Reported Medications Sertraline Hcl (Sertraline Hcl) 25 Mg Tab, 1 TAB PO DAILY, #30 TAB 2 Refills 07/29/24 Atorvastatin Calcium (Lipitor) 20 Mg Tab, 1 TAB PO DAILY, #90 TAB 1 Refill 07/29/24 Metoprolol Tartrate (LOPRESSOR TABLET) 50 Mg Tb, 1 TAB PO BID, #60 TAB 5 Refills 07/29/24 Apixaban Base (ELIQUIS) 2.5 Mg Tab, 2.5 MG PO BID, TAB 07/29/24 Current Medications Current Medications Medications (Trade) Dose Ordered Sig/Oli Route PRN Reason Start Time Stop Time Status Last Admin Sodium Chloride (Sal[place] Ns) 10 ml Q8HR IV 07/29/24 06:00 07/29/24 05:47 Acetaminophen/ Hydrocodone Bitart ([place] 5/325MG Tab) 1 tab Q4HP PRN PO MODERATE PAIN (4-6 PAIN SCALE) 07/28/24 22:30 07/29/24 13:16 Acetaminophen (Tylenol Tablet) 650 mg Q6HP PRN PO PAIN SCALE 1-3 OR TEMP>100.4 07/28/24 22:30 Morphine Sulfate 2 mg Q4HPRN PRN IV SEVERE PAIN (7-10 PAIN SCALE) 07/28/24 22:30 07/28/24 22:56 DC Nitroglycerin (Ntrostat Sublingual) 0.4 mg Q5MINP PRN SL FOR CHEST PAIN 07/28/24 22:30 07/28/24 22:56 DC Morphine Sulfate 2 mg Q30M PRN IV FOR CHEST PAIN 07/28/24 22:30 07/28/24 22:56 DC Aspirin 81 mg DAILY PO 07/29/24 10:00 07/29/24 08:34 Atorvastatin Calcium (Lipitor) 40 mg HS PO 07/29/24 22:00 07/29/24 13:17 DC Metoprolol Tartrate (Lopressor Tablet) 25 mg BID PO 07/29/24 10:00 07/28/24 23:09 DC Apixaban (Eliquis) 2.5 mg BID PO 07/29/24 10:00 07/29/24 08:33 Ceftriaxone Sodium 50 ml @ 100 mls/hr DAILY@09 IV 07/29/24 09:00 07/29/24 13:17 DC 07/29/24 08:33 Nifedipine (Procardia Xl (Time-Release)) 30 mg DAILY PO 07/29/24 10:00 07/28/24 23:38 DC Carvedilol (Coreg Tablet) 6.25 mg Q12HR PO 07/29/24 10:00 07/29/24 13:18 DC 07/29/24 08:35 Losartan Potassium (Cozaar Tablet) 25 mg DAILY PO 07/29/24 10:00 07/29/24 13:18 DC 07/29/24 08:35 Pantoprazole Sodium (Protonix Tablet) 40 mg DAILY@0600 PO 07/30/24 06:00 Sertraline HCl (Zoloft) 50 mg DAILY PO 07/29/24 10:00 07/29/24 08:33 Ondansetron HCl (Zofran) 4 mg Q8HPRN PRN IV NAUSEA / VOMITING 07/29/24 08:00 07/29/24 08:22 Losartan Potassium (Cozaar Tablet) 50 mg DAILY PO 07/30/24 10:00 Levothyroxine Sodium (Synthroid Tablet) 88 mcg QAM@0600 PO 07/30/24 06:00 Metoprolol Tartrate (Lopressor Tablet) 50 mg BID PO 07/29/24 22:00 Review of Systems All Other Systems: Reviewed and Negative (Comprehensive systems review obtained and negative except for what is stated in the HPI.) Vital Signs Vital Signs Date Time Temp Pulse Resp B/P (MAP) Pulse Ox O2 Delivery O2 Flow Rate FiO2 07/29/24 09:00 97.7 73 16 132/74 (93) 96 97.7 07/29/24 08:00 Nasal Cannula* 2 28 Physical Exam GENERAL: Alert and oriented x 3. No acute distress. EYES: PERRL, EOMI. Anicteric. HENT: Moist mucous membranes. LUNGS: Clear to auscultation bilaterally. CARDIOVASCULAR: irregular rate and rhythm. ABDOMEN: Soft, nontender and nondistended. EXTREMITIES: Right hip TTP. NEUROLOGIC: No focal neurological deficits. SKIN: Warm, dry. Labs/Diagnostic Data Labs Test 07/29/24 05:05 07/28/24 23:44 07/28/24 15:06 07/28/24 14:08 Range/Units White Blood Count 13.0 H 4.4-10.8 10^3/uL Red Blood Count 4.83 4.0-5.20 10^6/uL Hemoglobin 14.5 12.2-16.2 g/dL Hematocrit 43.6 36.0-46.0 % Mean Corpuscular Volume 90.2 80.0-100.0 fL Mean Corpuscular Hemoglobin 30.1 28.0-32.0 pg Mean Corpuscular Hemoglobin Concent 33.3 32.0-36.0 g/dL Red Cell Distribution Width 14.0 11.8-14.3 % Platelet Count 188 140-450 10^3/uL Mean Platelet Volume 8.8 6.9-10.8 fL Neutrophils (%) (Auto) 78.9 37.0-80.0 % Lymphocytes (%) (Auto) 11.3 10.0-50.0 % Monocytes (%) (Auto) 9.1 0.0-12.0 % Eosinophils (%) (Auto) 0.3 0.0-7.0 % Basophils (%) (Auto) 0.4 0.0-2.0 % Neutrophils # (Auto) 10.2 H 1.6-8.6 10 ^3/uL Lymphocytes # (Auto) 1.5 0.4-5.4 10 ^3/uL Monocytes # (Auto) 1.2 0-1.3 10 ^3/uL Eosinophils # (Auto) 0 0-0.8 10 ^3/uL Basophils # (Auto) 0.1 0-0.2 10 ^3/uL Nucleated Red Blood Cells 0.1 % Sodium Level 138 136-145 mmol/L Potassium Level 4.1 3.5-5.1 mmol/L Chloride Level 103 98-107 mmol/L Carbon Dioxide Level 23 20-31 mmol/L Anion Gap 12 5-15 Blood Urea Nitrogen 20 9-23 mg/dL Creatinine 0.85 0.550-1.02 mg/dL Glomerular Filtration Rate Calc 66 >90 mL/min BUN/Creatinine Ratio 23.5 H 10.0-20.0 Serum Glucose 113 H 74-106 mg/dL Calcium Level 9.1 8.7-10.4 mg/dL Magnesium Level 2.2 1.6-2.6 mg/dL Total Bilirubin 1.0 0.2-1.0 mg/dL Aspartate Amino Transferase (AST) 37 13-40 U/L Alanine Aminotransferase (ALT) 21 7-40 U/L Alkaline Phosphatase 71 46-116 U/L Total Protein 7.4 5.7-8.2 g/dL Albumin 3.9 3.2-4.8 g/dL Free Thyroxine (T4) Calculated 1.34 0.89-1.76 ng/dL Troponin I High Sensitivity 326 *H </=34 ng/L Thyroid Stimulating Hormone (TSH) 0.43 L 0.55-4.78 uIU/mL B-Type Natriuretic Peptide 1077.30 0-100 pg/mL Assessment Fall. Thoracic 2 vertebral fracture. Severe back pain likely due to T2 vertebral fracture. Atrial fibrillation rate controlled. Hypertensive urgency. NSTEMI type 2 likely demand lead ischemia. Heart failure systolic versus diastolic. Leukocytosis under evaluation. Hypothyroidism. Depression. Osteoarthritis. Scoliosis of the thoracic spine. Moderate degenerative arthrosis throughout the thoracic spin. Head-Moderate chronic microvascular Ischemic changes of head. Plan/Recommendation I agree with your ongoing assessment and care of plan. Telemetry reviewed. Echocardiogram. [place] for pain management. Eliquis. Lipitor. Losartan. GI prophylactics. Additional plan as per the hospital course. A total of 45 minutes was spent reviewing the patient record, examining the patient, making a diagnostic and therapeutic plan, discussing this plan with medical personnel, following up on diagnostic studies and following the patient for clinical stability excluding any and all procedures. At least 50% of this time was spent in direct, [id number] contact. Plan discussed with: Patient ALMAZ CHAIDEZ MD July 29, 2024 15:19
[2024-07-30] VITALS (10 sets, daily range): BP systolic 94–182; BP diastolic 64–114; PULSE 71–105; RESP 16–17; TEMP 97.4–98; O2SAT 90–100
[2024-07-30 01:57] LABS: Urine Bacteria None Seen /hpf (None Seen)
[2024-07-30 02:33] LABS: Urine Blood 2+ /uL (Negative); Urine Clarity Clear (Clear); Urine Color Yellow (Yellow); Urine Protein, UAD 2+ (Negative); Urine Specific Gravity 1.027 (1.001-1.035); Urine Squamous Epithelial Cell FEW /hpf (<5); Urine Urobilinogen Normal (Negative); Urine WBC 5 /HPF (0-5)
[2024-07-30] MEDS: PANTOPRAZOLE 40 MG TAB PO SCH (06:02)
[2024-07-30] MEDS: LEVOTHYROXINE SODIUM 88 MCG TAB PO SCH (06:02)
[2024-07-30 06:31] LABS: Basophils # (auto) 0.1 10 ^3/uL (0-0.2); Basophils % (auto) 0.4 % (0.0-2.0); Eosinophils # (auto) 0 10 ^3/uL (0-0.8); Eosinophils % (auto) 0.1 % (0.0-7.0); Hematocrit 42.9 % (36.0-46.0); Hemoglobin 14.3 g/dL (12.2-16.2); Lymphocytes # (auto) 1.2 10 ^3/uL (0.4-5.4); Lymphocytes % (auto) 8.1 % (10.0-50.0); Mean Corpuscular Hemoglobin 30.5 pg (28.0-32.0); Mean Corpuscular Hgb Conc. 33.4 g/dL (32.0-36.0); Mean Corpuscular Volume 91.5 fL (80.0-100.0); Monocytes # (auto) 1.3 10 ^3/uL (0-1.3); Monocytes % (auto) 8.8 % (0.0-12.0); Neutrophils # (auto) 12.4 10 ^3/uL (1.6-8.6); Neutrophils % (auto) 82.6 % (37.0-80.0); Nucleated Red Blood Cells % 0.2 %; Platelet Count (auto) 185 10^3/uL (140-450); Red Blood Cells 4.69 10^6/uL (4.0-5.20); Red Cell Distribution Width 13.8 % (11.8-14.3)
[2024-07-30 06:37] LABS: Anion Gap 12 (5-15); Carbon Dioxide 22 mmol/L (20-31); Chloride 101 mmol/L (98-107); Potassium 4.1 mmol/L (3.5-5.1)
[2024-07-30 06:39] LABS: Calcium 9.7 mg/dL (8.7-10.4)
[2024-07-30 06:43] LABS: Blood Urea Nitrogen 17 mg/dL (9-23)
[2024-07-30 06:48] LABS: Glucose 135 mg/dL (74-106); Sodium 135 mmol/L (136-145)
[2024-07-30] MEDS: LOSARTAN POTASSIUM 25 MG TAB PO SCH (09:14)
[2024-07-30] MEDS ORDERED: CALCIUM W/VIT D (600MG/400IU) TAB PO ONE (14:45)
[2024-07-30] MEDS: cefTRIAXone 1GM/50ML D5W 50 ML IV ONE (16:12)
--- NOTE | 2024-07-30 16:26 | DVHPN2 ---
Subjective FEELS BETTER TODAY. LESS PAIN Reviewed: Care Plan, H&P, Labs, Medications, Previous Orders, Radiology, Other (CONSULTANTS) Changes from previous H/P or p: No Changes Objective Vitals Vital Signs Date Time Temp Pulse Resp B/P (MAP) Pulse Ox O2 Delivery O2 Flow Rate FiO2 07/30/24 13:00 97.5 87 16 148/76 (100) 99 97.5 07/30/24 08:00 Nasal Cannula* 2 28 Intake/Output Intake and Output 07/30/24 07:00 Intake Total 1250 ml Output Total 250 ml Balance 1000 ml Intake Oral 1200 ml IV Total 50 ml Output Urine Total 250 ml # Voids 3 General Appearance: Alert, Oriented X3, Cooperative, No acute distress HEENT: Atraumatic Lungs: Clear to auscultation Cardiovascular: Regular rate Neuro: Other (SYMMETRIC UPPER AND LOWER EXTREMITIES.) Medications Current Medications Medications Dose Ordered Sig/Oli Route Start Time Stop Time Status Last Admin Dose Admin Sodium Chloride 10 ml Q8HR IV 07/29/24 06:00 07/30/24 16:12 10 ML Acetaminophen/ Hydrocodone Bitart 1 tab Q4HP PRN PO 07/28/24 22:30 07/30/24 09:13 1 TAB Acetaminophen 650 mg Q6HP PRN PO 07/28/24 22:30 Aspirin 81 mg DAILY PO 07/29/24 10:00 07/30/24 09:13 81 MG Apixaban 2.5 mg BID PO 07/29/24 10:00 07/30/24 09:12 2.5 MG Pantoprazole Sodium 40 mg DAILY@0600 PO 07/30/24 06:00 07/30/24 06:02 40 MG Sertraline HCl 50 mg DAILY PO 07/29/24 10:00 07/30/24 09:13 50 MG Ondansetron HCl 4 mg Q8HPRN PRN IV 07/29/24 08:00 07/30/24 04:17 4 MG Losartan Potassium 50 mg DAILY PO 07/30/24 10:00 07/30/24 09:14 50 MG Levothyroxine Sodium 88 mcg QAM@0600 PO 07/30/24 06:00 07/30/24 06:02 88 MCG Metoprolol Tartrate 50 mg BID PO 07/29/24 22:00 07/30/24 09:14 50 MG Labetalol HCl 5 mg Q2HPRN PRN IV 07/29/24 22:15 07/30/24 00:39 5 MG Ceftriaxone Sodium 50 ml @ 100 mls/hr DAILY@09 IV 07/31/24 09:00 Calcium/Vitamin D 1 tab BIDWM PO 07/30/24 18:00 Laboratory Results Laboratory Tests 07/30/24 06:10 Chemistry Test 07/30/24 06:10 Calcium Level 9.7 mg/dL (8.7-10.4) Urinalysis Test 07/30/24 01:52 Urine Color Yellow (Yellow) Urine Clarity Clear (Clear) Urine pH 6.0 (5.0-9.0) Urine Specific [place] 1.027 (1.001-1.035) Urine Protein 2+ (Negative) H Urine Ketones Negative (Negative) Urine Blood 2+ /uL (Negative) H Urine Nitrite Negative (Negative) Urine Bilirubin Negative (Negative) Urine Urobilinogen Normal mg/dL (Negative) Urine Leukocyte Esterase Negative /uL (Negative) Urine RBC 7 /hpf (0 - 4) Urine Microscopic WBC 5 /HPF (0-5) Urine Squamous Epithelial Cells Few /hpf (<5) Urine Bacteria None seen /hpf (None Seen) Urine Glucose Normal mg/dL (Normal) Microbiology Microbiology Date/Time Source Procedure Growth Status 07/28/24 23:44 Blood Blood Culture - Preliminary NO GROWTH AFTER 24 HOURS OF INCUBATION. Resulted Assessment/Plan Assessment/Plan T12 COMPRESSION FRACTION STATUS POST FALL POSSIBLE UTI NON-STEMI HYPERTENSION PLAN: CALCITONIN. ROCEPHIN FOR THE POSSIBLE UTI. BLOOD PRESSURE TREATMENT P.R.N. Plan discussed with: Patient My Orders Orders - LIANG GILLIAM MD Procedure Category Date Status Time Labetalol Hcl PHA 07/29/24 In Process (Labetalol Hcl) 22:15 Ceftriaxone 1gm/50ml PHA 07/31/24 In Process D5w (Rocephin) 09:00 Urine Bacterial WILLY 07/30/24 Logged Culture 14:38 Complete Blood Count LAB 07/31/24 Verified 06:00 Comprehensive LAB 07/31/24 Verified Metabolic Panel 06:00 Calcium W/Vit D PHA 07/30/24 In Process Tablet (Oscal W/Vit D 18:00 Date of Service: July 30, 2024 Billing Provider: LIANG GILLIAM MD Common Visit Codes: [id number] INP/OBS CARE(MOD) LIANG GILLIAM MD July 30, 2024 16:26
[2024-07-30] MEDS: CALCITONIN 400unit/2ml Vial (200unit/ml) SC ONE (16:49)
[2024-07-30] MEDS: CALCIUM W/VIT D (600MG/400IU) TAB PO SCH (18:09)
--- NOTE | 2024-07-30 22:47 | DVHPN2 ---
Progress Note - Dictate Date Seen: July 30, 2024 Medical Necessity Reason Pt with a Central, PICC or Fol: No Subjective Patient was seen and evaluated in follow up. Patient report feeling better today, pain is improving. WBC 15, troponin 83. Telemetry reviewed. vital signs Vital Sign Date Time Temp Pulse Resp B/P (MAP) Pulse Ox O2 Delivery O2 Flow Rate FiO2 07/30/24 09:14 105 173/100 07/30/24 09:00 98.0 17 100 98.0 07/30/24 08:00 Nasal Cannula* 2 28 Total Intake and Output 07/29/24 07/29/24 07/30/24 15:00 23:00 07:00 Intake Total 905 ml 345 ml Output Total 250 ml Balance 905 ml 95 ml medications Current Medications Medications Dose Ordered Sig/Oli Route Start Time Stop Time Status Last Admin Dose Admin Sodium Chloride 10 ml Q8HR IV 07/29/24 06:00 07/30/24 06:04 10 ML Acetaminophen/ Hydrocodone Bitart 1 tab Q4HP PRN PO 07/28/24 22:30 07/30/24 09:13 1 TAB Acetaminophen 650 mg Q6HP PRN PO 07/28/24 22:30 Aspirin 81 mg DAILY PO 07/29/24 10:00 07/30/24 09:13 81 MG Apixaban 2.5 mg BID PO 07/29/24 10:00 07/30/24 09:12 2.5 MG Pantoprazole Sodium 40 mg DAILY@0600 PO 07/30/24 06:00 07/30/24 06:02 40 MG Sertraline HCl 50 mg DAILY PO 07/29/24 10:00 07/30/24 09:13 50 MG Ondansetron HCl 4 mg Q8HPRN PRN IV 07/29/24 08:00 07/30/24 04:17 4 MG Losartan Potassium 50 mg DAILY PO 07/30/24 10:00 07/30/24 09:14 50 MG Levothyroxine Sodium 88 mcg QAM@0600 PO 07/30/24 06:00 07/30/24 06:02 88 MCG Metoprolol Tartrate 50 mg BID PO 07/29/24 22:00 07/30/24 09:14 50 MG Labetalol HCl 5 mg Q2HPRN PRN IV 07/29/24 22:15 07/30/24 00:39 5 MG objective GENERAL: Alert and oriented x 3. No acute distress. EYES: PERRL, EOMI. Anicteric. HENT: Moist mucous membranes. LUNGS: Clear to auscultation bilaterally. CARDIOVASCULAR: irregular rate and rhythm. ABDOMEN: Soft, nontender and nondistended. EXTREMITIES: Right hip TTP. NEUROLOGIC: No focal neurological deficits. SKIN: Warm, dry. laboratory and microbiology Laboratory Tests 07/30/24 06:10 Test 07/30/24 06:10 Range/Units Serum Glucose 135 H 74-106 mg/dL Problem List Fall. Thoracic 2 vertebral fracture. Severe back pain likely due to T2 vertebral fracture. Atrial fibrillation rate controlled. Hypertensive urgency. NSTEMI type 2 likely demand lead ischemia. Heart failure systolic versus diastolic. Leukocytosis under evaluation. Hypothyroidism. Depression. Osteoarthritis. Scoliosis of the thoracic spine. Moderate degenerative arthrosis throughout the thoracic spin. Head-Moderate chronic microvascular Ischemic changes of head. Assessment/Plan Continued all current supportive medical care. Echocardiogram. [place] for pain management. Eliquis. Lipitor. Losartan. GI prophylactics. Additional plan as per the hospital course. Plan discussed with: Patient ALMAZ CHAIDEZ MD July 30, 2024 13:49
[2024-07-31 01:00] VITALS: BP 161/79; PULSE 85; RESP 15; TEMP 97.6; O2SAT 96
[2024-07-31 05:00] VITALS: BP 108/57; PULSE 80; RESP 16; TEMP 97.9; O2SAT 95
[2024-07-31 07:17] LABS: Basophils # (auto) 0 10 ^3/uL (0-0.2); Basophils % (auto) 0.3 % (0.0-2.0); Eosinophils # (auto) 0 10 ^3/uL (0-0.8); Eosinophils % (auto) 0.4 % (0.0-7.0); Hematocrit 39.7 % (36.0-46.0); Hemoglobin 13.3 g/dL (12.2-16.2); Lymphocytes # (auto) 1.6 10 ^3/uL (0.4-5.4); Lymphocytes % (auto) 13.9 % (10.0-50.0); Mean Corpuscular Hemoglobin 30.1 pg (28.0-32.0); Mean Corpuscular Hgb Conc. 33.4 g/dL (32.0-36.0); Mean Corpuscular Volume 89.9 fL (80.0-100.0); Monocytes # (auto) 1.3 10 ^3/uL (0-1.3); Monocytes % (auto) 11.3 % (0.0-12.0); Neutrophils # (auto) 8.3 10 ^3/uL (1.6-8.6); Neutrophils % (auto) 74.1 % (37.0-80.0); Nucleated Red Blood Cells % 0.2 %; Platelet Count (auto) 181 10^3/uL (140-450); Red Blood Cells 4.42 10^6/uL (4.0-5.20); White Blood Cell 11.2 10^3/uL (4.4-10.8)
[2024-07-31 08:00] VITALS: RESP 17; O2SAT 95
[2024-07-31 09:00] VITALS: BP 100/60; PULSE 80; RESP 16; TEMP 97.4; O2SAT 92
[2024-07-31] MEDS: cefTRIAXone 1GM/50ML D5W 50 ML IV SCH (09:05)
[2024-07-31] MEDS: amLODIPine BESYLATE 5 MG TAB PO SCH (09:07)
[2024-07-31] MEDS: ACETAMINOPHEN 325 MG TAB PO PRN (09:11)
[2024-07-31 09:15] LABS: Alanine Aminotransferase 22 U/L (7-40); Alkaline Phosphatase 68 U/L (46-116); Anion Gap 9 (5-15); Aspartate Aminotransferase 35 U/L (13-40); BUN/Creatinine Ratio 26.3 (10.0-20.0); Blood Urea Nitrogen 20 mg/dL (9-23); Calcium 9.1 mg/dL (8.7-10.4); Carbon Dioxide 27 mmol/L (20-31); Chloride 100 mmol/L (98-107); Glucose 93 mg/dL (74-106); Potassium 3.9 mmol/L (3.5-5.1); Sodium 136 mmol/L (136-145); Total Protein 6.9 g/dL (5.7-8.2)
[2024-07-31 09:16] LABS: Albumin 3.7 g/dL (3.2-4.8)
[2024-07-31 09:17] LABS: Bilirubin, Total 0.6 mg/dL (0.2-1.0)
[2024-07-31 12:45] VITALS: BP 139/78; PULSE 85; RESP 17; TEMP 97.6; O2SAT 94
[2024-07-31] MEDS ORDERED: POLYETHYLENE GLYCOL 17 GM PWDR PO PRN (13:45)
--- NOTE | 2024-07-31 13:52 | DVHDSRES ---
Discharge Summary Date of Admission Resident Creating Document: KATTY PARSON RESIDENT July 28, 2024 at 22:19 Date of Discharge: July 31, 2024 Admitting Diagnosis Fall Thoracic 2 vertebral fracture Severe back pain likely due to T2 vertebral fracture Atrial fibrillation rate controlled Hypertensive urgency NSTEMI type 2 likely demand lead ischemia Heart failure systolic versus diastolic-pending echo 2D Leukocytosis under evaluation Hypothyroidism Depression Osteoarthritis Wounds: none Labs/Diagnostic Data: Laboratory Results Test 07/31/24 06:30 07/30/24 06:10 07/30/24 01:52 07/29/24 05:05 White Blood Count 11.2 10^3/uL (4.4-10.8) Red Blood Count 4.42 10^6/uL (4.0-5.20) Hemoglobin 13.3 g/dL (12.2-16.2) Hematocrit 39.7 % (36.0-46.0) Mean Corpuscular Volume 89.9 fL (80.0-100.0) Mean Corpuscular Hemoglobin 30.1 pg (28.0-32.0) Mean Corpuscular Hemoglobin Concent 33.4 g/dL (32.0-36.0) Red Cell Distribution Width 14.0 % (11.8-14.3) Platelet Count 181 10^3/uL (140-450) Mean Platelet Volume 9.0 fL (6.9-10.8) Neutrophils (%) (Auto) 74.1 % (37.0-80.0) Lymphocytes (%) (Auto) 13.9 % (10.0-50.0) Monocytes (%) (Auto) 11.3 % (0.0-12.0) Eosinophils (%) (Auto) 0.4 % (0.0-7.0) Basophils (%) (Auto) 0.3 % (0.0-2.0) Neutrophils # (Auto) 8.3 10 ^3/uL (1.6-8.6) Lymphocytes # (Auto) 1.6 10 ^3/uL (0.4-5.4) Monocytes # (Auto) 1.3 10 ^3/uL (0-1.3) Eosinophils # (Auto) 0 10 ^3/uL (0-0.8) Basophils # (Auto) 0 10 ^3/uL (0-0.2) Nucleated Red Blood Cells 0.2 % Sodium Level 136 mmol/L (136-145) Potassium Level 3.9 mmol/L (3.5-5.1) Chloride Level 100 mmol/L (98-107) Carbon Dioxide Level 27 mmol/L (20-31) Anion Gap 9 (5-15) Blood Urea Nitrogen 20 mg/dL (9-23) Creatinine 0.76 mg/dL (0.550-1.02) Glomerular Filtration Rate Calc 76 mL/min (>90) BUN/Creatinine Ratio 26.3 (10.0-20.0) Serum Glucose 93 mg/dL (74-106) Calcium Level 9.1 mg/dL (8.7-10.4) Total Bilirubin 0.6 mg/dL (0.2-1.0) Aspartate Amino Transferase (AST) 35 U/L (13-40) Alanine Aminotransferase (ALT) 22 U/L (7-40) Alkaline Phosphatase 68 U/L (46-116) Total Protein 6.9 g/dL (5.7-8.2) Albumin 3.7 g/dL (3.2-4.8) Troponin I High Sensitivity 83 ng/L (</=34) Urine Color Yellow (Yellow) Urine Clarity Clear (Clear) Urine pH 6.0 (5.0-9.0) Urine Specific [place] 1.027 (1.001-1.035) Urine Protein 2+ (Negative) Urine Ketones Negative (Negative) Urine Blood 2+ /uL (Negative) Urine Nitrite Negative (Negative) Urine Bilirubin Negative (Negative) Urine Urobilinogen Normal mg/dL (Negative) Urine Leukocyte Esterase Negative /uL (Negative) Urine RBC 7 /hpf (0 - 4) Urine Microscopic WBC 5 /HPF (0-5) Urine Squamous Epithelial Cells Few /hpf (<5) Urine Bacteria None seen /hpf (None Seen) Urine Glucose Normal mg/dL (Normal) Magnesium Level 2.2 mg/dL (1.6-2.6) Test 07/28/24 23:44 07/28/24 15:06 07/28/24 14:08 Free Thyroxine (T4) Calculated 1.34 ng/dL (0.89-1.76) Thyroid Stimulating Hormone (TSH) 0.43 uIU/mL (0.55-4.78) B-Type Natriuretic Peptide 1077.30 pg/mL (0-100) Other Laboratory Tests 07/31/24 06:30 Brief Hx & Hospital Course: HPI The patient is an 88-year-old female with a past medical history of atrial fibrillation on Eliquis, hypertension, depression, and thyroid disease who presents with complaints of back and right hip pain following a fall yesterday. The patient reports falling in the shower, landing on her back, and striking her head. She denies any loss of consciousness, chest pain, shortness of breath, or palpitations. She describes the pain as severe, rated 9/10, localized to the lower back and right hip. No numbness, weakness, or bowel/bladder incontinence reported. Past medical history: As per HPI Past surgical history: Breast lumpectomy Social history: Patient lives with the son and denies smoking, alcohol, drug use Home medications, Eliquis 2.5 mg b.i.d., metoprolol tartrate 50 mg b.i.d., sertraline 25 mg, atorvastatin 20 mg Brief hospital course Patient presented to the hospital with a chief complaint of back pain which started after a fall. In the hospital multiple imagings were done which included head CT which showed no acute intracranial hemorrhage or mass effect, chronic microvascular ischemic changes. CT cervical spine showed some cervical degenerative disc disease with a well-maintained vertebral body heights, no fractures. Hip CT showed no acute osseous abnormality. Lumbar spine CT without contrast showed [id number] lumbar degenerative disc disease. Thoracic spine CT showed acute T12 vertebral body fracture without any significant retropulsion into the spinal canal, moderate degenerative arthrosis throughout the thoracic spine and S shaped scoliosis of thoracic spine. Patient was managed conservatively with pain medications and calcitonin was given subcutaneously for pain management. Patient responded well. Physical therapy evaluation was done which recommended patient to be discharged to a detention facility for physical therapy rehab since she did not have enough support at home. After discussion with the patient and the family they agreed to go to SNF. Discharge plan To SNF Medications as per paperwork Thoracic binder for support Consults/Reason for consult Cardiology consultation for NSTEMI Operations or Procedures none Condition at Discharge: Good Final Diagnosis/Problems List Status post fall Severe back pain likely due to fracture of the vertebra Vertebral fracture T12 status post fall Atrial fibrillation, rate controlled Hypertensive urgency NSTEMI type 2 likely demand ischemia Hypertensive heart disease with ?diastolic Heart failure H/O hypothyroidism Discharge Disposition: [facility]way Facility Discharge Instruct/Medications Diet: Cardiac 2g Na,low cholest Activity: No Restrictions, As Tolerated Follow Up/Referral: Follow with the PCP in one week Medications: as per EMR Discharge Statement: "Patient was advised to return to the ER or call 911 if any headaches, dizziness, shortness of breath, chest pain, abdominal pain, bleeding, fevers, or worsening of medical condition. Patient was counseled about treatment plan, medications, possible side effects, patientverbalized understanding. All questions were answered to the best of my ability. This discharge took greater then 30 minutes in planning, reviewing documentation, counseling the patient, and discussing with other team members." ASSESSMENT ASSESSMENT Assessment Status post fall Severe back pain likely due to fracture of the vertebra Vertebral fracture T12 status post fall Atrial fibrillation, rate controlled Hypertensive urgency NSTEMI type 2 likely demand ischemia Hypertensive heart disease with ?diastolic Heart failure H/O hypothyroidism Date of Service: July 31, 2024 Billing Provider: STERLING TEMPLETON MD Common Visit Codes: 15752-JZZ/OBS DISCH DAY >30min KATTY PARSON RESIDENT July 31, 2024 13:52 STERLING TEMPLETON MD August 01, 2024 12:47
[2024-07-31] MEDS: CALCITONIN 400unit/2ml Vial (200unit/ml) SC ONE (16:20)
[2024-07-31 16:53] VITALS: BP 143/85; PULSE 81; RESP 16; TEMP 97.3; O2SAT 93
--- NOTE | 2024-07-31 22:35 | DVHPN2 ---
Progress Note - Dictate Date Seen: July 31, 2024 Medical Necessity Reason Pt with a Central, PICC or Fol: No Subjective Patient was seen and evaluated in follow up. No overnight events. Echocardiogram shows an EF of 65%, moderate to severe MR, severe TR. Telemetry reviewed. vital signs Vital Sign Date Time Temp Pulse Resp B/P (MAP) Pulse Ox O2 Delivery O2 Flow Rate FiO2 07/31/24 16:53 97.3 81 16 143/85 (104) 93 97.3 07/31/24 08:00 Nasal Cannula* 2 28 Total Intake and Output 07/30/24 07/30/24 07/31/24 15:00 23:00 07:00 Intake Total 745 ml 240 ml Output Total 600 ml Balance 745 ml -360 ml objective GENERAL: Alert and oriented x 3. No acute distress. EYES: PERRL, EOMI. Anicteric. HENT: Moist mucous membranes. LUNGS: Clear to auscultation bilaterally. CARDIOVASCULAR: irregular rate and rhythm. ABDOMEN: Soft, nontender and nondistended. EXTREMITIES: Right hip TTP. NEUROLOGIC: No focal neurological deficits. SKIN: Warm, dry. laboratory and microbiology Laboratory Tests 07/31/24 06:30 Test 07/31/24 06:30 Range/Units Serum Glucose 93 74-106 mg/dL Problem List Fall. Thoracic 2 vertebral fracture. Severe back pain likely due to T2 vertebral fracture. Atrial fibrillation rate controlled. Hypertensive urgency. NSTEMI type 2 likely demand lead ischemia. Heart failure systolic versus diastolic. Leukocytosis under evaluation. Hypothyroidism. Depression. Osteoarthritis. Scoliosis of the thoracic spine. Moderate degenerative arthrosis throughout the thoracic spin. Head-Moderate chronic microvascular Ischemic changes of head. Assessment/Plan Continued all current supportive medical care. [place] for pain management. Eliquis. Lipitor. Losartan. GI prophylactics. Additional plan as per the hospital course. Plan discussed with: Patient ALMAZ CHAIDEZ MD July 31, 2024 22:35
== END 2024-07-31 17:10 | DRG 551 ==
LOC: ER 13:20 → OVERFLOW 22:19 → TELE-WESTW 07-29 02:35
PROVIDERS: ADMIT Student in an Organized Health Care Education/Training Program; ATTEND Emergency Medicine
DX: S22.089A Unspecified fracture of T11-T12 vertebra, initial encounter for closed fracture (principal); I21.A1 Myocardial infarction type 2; I16.1 Hypertensive emergency; I50.30 Unspecified diastolic (congestive) heart failure; E03.9 Hypothyroidism, unspecified; I48.91 Unspecified atrial fibrillation; M50.30 Other cervical disc degeneration, unspecified cervical region; M51.360 Other intervertebral disc degeneration, lumbar region with discogenic back pain only; F32.A Depression, unspecified; M41.84 Other forms of scoliosis, thoracic region; W18.2XXA Fall in (into) shower or empty bathtub, initial encounter; I11.0 Hypertensive heart disease with heart failure; F41.9 Anxiety disorder, unspecified; Z88.2 Allergy status to sulfonamides; Z79.899 Other long term (current) drug therapy; Z79.01 Long term (current) use of anticoagulants; Y99.8 Other external cause status; Y93.E1 Activity, personal bathing and showering; Y92.89 Other specified places as the place of occurrence of the external cause
CPT/HCPCS: 36415; 70450; 71045; 72125; 72128; 72131; 73700; 80048; 80053; 81001; 83735; 83880; 84439; 84443; 84484; 85025; 87040; 87086; 93005; 93306; 96365; 96375; 97110; 97116; 97163; 97530; G0378; J2405; J2470